=== PATIENT | male | born 1970 | race Caucasian/White ===

== ENCOUNTER 2018-09-03 18:44 | Emergency (ER) | payer OTHER ==
[~2018-09-03] VITALS: Ht 180.3 cm; Wt 76.2 kg
[2018-09-03] MEDS ORDERED: TYLENOL EXTRA500 MG PO (19:15)
[2018-09-03 19:34] VITALS: BP 135/76
== END 2018-09-03 19:35 | disposition home or self-care (01) ==
LOC: ER 18:44
DX: S09.8XXA Other specified injuries of head, initial encounter (principal); W22.8XXA Striking against or struck by other objects, initial encounter; Y93.89 Activity, other specified; Y92.89 Other specified places as the place of occurrence of the external cause; Y99.8 Other external cause status